=== PATIENT | male | born 1970 | race Caucasian/White ===

== ENCOUNTER → 2017-09-09 | Outpatient (CLI) | payer BC ==
[~2017-09-09] MED LIST: LEVO100T7 PO
--- NOTE | 2017-09-09 08:38 | DIAGNOSTIC IMAGING REPORT ---
TESTICULAR ULTRASOUND CLINICAL HISTORY: N50.9 epididymal mass COMPARISON STUDY: No previous studies for comparison. FINDINGS: The right testis measures 46 x 28 x 20 mm. The left testis measures 45 x 30 x 20 mm. No intratesticular masses are visualized. There is no evidence of testicular torsion. There are 2 small right-sided epididymal cysts the largest of which measures 5 mm. There is a 2 mm left-sided epididymal cyst. IMPRESSION: 1. No evidence of testicular torsion 2. No evidence of intratesticular mass 3. Small epididymal cysts Electronically signed by: Santi Nance M.D. 09/09/2017 8:37 AM Dictated Date/Time: 09/09/2017 8:25 AM
== END | disposition home or self-care (01) ==
LOC: C.ULTR 07:31
PROVIDERS: ATTEND Urology
DX: N50.3 Cyst of epididymis (principal); N50.9 Disorder of male genital organs, unspecified

== ENCOUNTER 2021-11-06 08:20 | Inpatient (IN) ==
[2021-11-06] MEDS ORDERED: SODIUM CHLORIDE 0.9% 1000ML 1,000 ML IV ONE (09:02)
[2021-11-06] MEDS ORDERED: ONDANSETRON INJ 2 MG/ML 2 ML VIAL IV PRN ×2 (09:03→18:47)
[2021-11-06] MEDS ORDERED: HYDROmorphone INJ 0.5 MG/0.5 ML SYR IV PRN (09:03)
--- NOTE | 2021-11-06 09:14 | Emergency Department Note ---
Impression & Plan Renal infarction, Renal artery occlusion, Abdominal pain, acute, right upper quadrant ED Provider Note CHIEF COMPLAINT: abdominal pain HISTORY OF PRESENT ILLNESS: This 51 yo male patient presents to the emergency department for evaluation of new onset right upper quadrant pain. It first start ed at 10am on 11/05/21 - it was located directly under the R rib cage. At times, it radiated through to the back. Prior to the onset of the pain he did eat "cream of wheat" for breakfast. Later in the afternoon he ate several hot dogs and cookies for lunch - subsequently he vomited (non-bloody, non-bilious). He also experienced chills but when he took his temperature he did not have a fever. He denies any changes to his bowel habits. He took 1 capsule of Aleve at 10pm last night, and then Tylenol 2 tabs 500mg at 1:30am this morning for the pain. The pain is currently a 2/10 in severity. He has never experienced a discomfort in this location before. He denies any preceding trauma to the abdomen/flank/back. He was outdoors setting traps one day prior to pain onset - which required him to bend forward many times, however he says the discomfort does not feel like a pulled muscle. He does have a personal history of kidney stones, although he denies any changes in his urination. No previous surgeries to the abdomen. Social Hx: No tobacco or alcohol use. Family Hx: father had gallbladder removed REVIEW OF SYSTEMS: A review of systems was performed with positives and pertinent negatives listed in the history of present illness. 10 systems were reviewed and are otherwise negative. ALLERGIES: see below MEDICATIONS: see below PHYSICAL EXAM: Vital signs reviewed. Noted to be mildly hypertensive at 144/99 General: Well-appearing adult male, in no significant distress. HEENT: No scleral icterus, PERRLA, neck supple. Normocephalic, atraumatic. Cardiovascular: Regular rate and rhythm, no extra sounds. Pulmonary: Clear to auscultation bilaterally, normal work of breathing. No crackles, wheezes, rhonchi. Abdomen: Soft, nondistended, positive bowel sounds. + mild tenderness reported upon palpation of RUQ. No rebound tenderness or guarding. No CVA tenderness. Gomez's sign negative. Musculoskeletal: no deformity appreciate Neurologic: Patient awake alert and oriented x 3, speech is clear Skin: Warm, dry, no rash. Otherwise noted as above. RADIOLOGY: see below EKG: Normal sinus rhythm with sinus arrhythmia at [address] segments. Normal QTC. No PVC, no PAC. Normal axis. MDM: This patient was evaluated and appeared to be in no significant distress. IV access was obtained and laboratory work was drawn. Patient was placed on a batch still operator and noted to be in a normal sinus rhythm with sinus arrhythmia. He was hydrated with normal saline solution, given IV Dilaudid and Zofran for his discomfort. Ultrasound right upper quadrant was performed and is negative for acute cholecystitis. Laboratory work is negative for obstructive biliary p athology. WBC is slightly elevated. Given that the patient's pain was sudden onset and unexplained, CT imaging of the abdomen pelvis was performed. There is concern for acute isolated pyelonephritis of the right kidney versus renal infarct. UA is negative. I did discuss the case with the radiologist who has recommended CT angiogram. Patient was given additional IV fluids. This was consistent with renal infarct. Hypercoagulable work-up was ordered. Patient's case was discussed with the hospitalist service who will evaluate patient for further management. Patient was made aware of the plan and agreed. DISPOSITION: Admission Past Med/Surg History Medical History Hypertension Surgical History H/O removal of cyst Family History Mother Diabetes Social History Smoking Status: Never smoker Hx Alcohol Use: No Hx Substance Use: No Preferred Language: Pashto Communication Ability: Effective Closer On Required: No Beliefs That Will Affect Care: None Current Living Situation: Spouse Other Information That Helps Us Care for You: No Feels Safe at Home: Yes Assistive Devices: None Allergies Allergies Allergy/AdvReac Type Severity Reaction Status Date / Time No Known Allergies Allergy Unverified 11/06/21 09:21 Home Meds Home Medications Medication Instructions Recorded Confirmed lisinopril 10 mg tablet 10 mg PO QAM 11/06/21 11/06/21 Results & Data (ED) Vital Signs Vital Signs - 24 hr 11/06/21 08:23 11/06/21 10:04 11/06/21 12:00 Temperature 36.5 C Temperature Source Temporal Artery Scan Pulse Rate 80 Pulse Rate [Finger] 73 78 Pulse Rate from SpO2 Sensor Pulse Rhythm [Finger] Regular Pulse Strength [Finger] Respiratory Rate 18 17 20 Respiratory Effort / Characteristics Non-Labored Spontaneous Non-Labored Respiratory Depth Normal Normal Blood Pressure 144/99 H Blood Pressure [Right Arm] 135/85 126/88 Blood Pressure Mean 114 Blood Pressure Mean [Right Arm] 101 100 Blood Pressure Position [Right Arm] Lying Pulse Oximetry 99 99 98 Oxygen Delivery Method Room Air Room Air Room Air Sepsis Recent Fever Within 48 Hours No Sepsis New/Unexplained Change in Mental Status No Sepsis Action Taken by Nursing No Action Required 11/06/21 14:00 11/06/21 15:00 11/06/21 15:10 Temperature Temperature Source Pulse Rate 72 Pulse Rate [Finger] 88 Pulse Rate from SpO2 Sensor 71 68 Pulse Rhythm [Finger] Regular Pulse Strength [Finger] Normal Respiratory Rate 20 Respiratory Effort / Characteristics Non-Labored Respiratory Depth Normal Blood Pressure Blood Pressure [Right Arm] 144/60 H Blood Pressure Mean Blood Pressure Mean [Right Arm] 88 Blood Pressure Position [Right Arm] Lying Pulse Oximetry 96 99 99 Oxygen Delivery Method Room Air Sepsis Recent Fever Within 48 Hours Sepsis New/Unexplained Change in Mental Status Sepsis Action Taken by Nursing 11/06/21 15:20 11/06/21 15:30 11/06/21 15:40 Temperature Temperature Source Pulse Rate 70 71 Pulse Rate [Finger] Pulse Rate from SpO2 Sensor 74 70 73 Pulse Rhythm [Finger] Pulse Strength [Finger] Respiratory Rate 19 21 Respiratory Effort / Characteristics Respiratory Depth Blood Pressure 127/76 127/87 Blood Pressure [Right Arm] Blood Pressure Mean 93 100 Blood Pressure Mean [Right Arm] Blood Pressure Position [Right Arm] Pulse Oximetry 97 99 98 Oxygen Delivery Method Sepsis Recent Fever Within 48 Hours Sepsis New/Unexplained Change in Mental Status Sepsis Action Taken by [facility] Medications Current Medication List: was personally reviewed by me Laboratory Data Attestation: I reviewed the patient's lab results. Result diagrams: 11/07/21 05:11 11/07/21 05:11 Lab Results 11/06/21 11/06/21 11/06/21 Range/Units 09:20 09:20 13:52 WBC 12.12 H (4.8-10.8) K/uL RBC 4.45 L (4.7-6.1) M/uL Hgb 13.6 L (14.0-18.0) g/dL Hct 40.0 L (42-52) % MCV 89.9 (80-100) fL MCH 30.6 (25-34) pg MCHC 34.0 (32-36) g/dL RDW Std Deviation 41.4 (36.4-46.3) fL RDW Coeff of Tyler 12.6 (11.5-14.5) % Plt Count 314 (130-400) K/uL MPV 9.1 (7.4-10.4) fL Immature Gran % (Auto) 0.1 % Neut % (Auto) 73.8 % Lymph % (Auto) 16.4 % Tyrrell % (Auto) 8.6 % Eos % (Auto) 0.7 % Baso % (Auto) 0.4 % Neut # (Auto) 8.95 H (1.4-6.5) K/uL Lymph # (Auto) 1.99 (1.2-3.4) K/uL Tyrrell # (Auto) 1.04 H (0.11-0.59) K/uL Eos # (Auto) 0.08 (0-0.5) K/uL Baso # (Auto) 0.05 (0-0.2) K/uL Immature Gran # (Auto) 0.01 (0.00-0.02) K/uL PT 10.4 (9.0-12.0) Seconds INR 1.0 (0.9-1.1) APTT 27.6 (21.0-31.0) Seconds PTT Ratio 1.0 Sodium 139 (136-145) mmol/L Potassium 3.8 (3.5-5.1) mmol/L Chloride 109 H (98-107) mmol/L Carbon Dioxide 25 (21-32) mmol/L Anion Gap 5.0 (3-11) BUN 18 (7-18) mg/dl Creatinine 1.09 (0.6-1.4) mg/dl Est Cr Clr Drug Dosing 85.4 ml/min Est GFR ( Amer) 90.6 ml/min Est GFR (Non-Af Amer) 78.2 ml/min BUN/Creatinine Ratio 16.5 (10-20) Glucose 103 H (70-99) mg/dl Calcium 9.6 (8.5-10.1) mg/dl Total Bilirubin 0.6 (0.2-1) mg/dl AST 18 (15-37) U/L ALT 30 (12-78) Alkaline Phosphatase 44 L (45-117) U/L Troponin I < 0.015 (0-0.045) ng/ml Total Protein 7.2 (6.4-8.2) gm/dl Albumin 3.8 (3.4-5.0) gm/dl Globulin 3.4 (2.5-4.0) gm/dl Albumin/Globulin Ratio 1.1 (0.9-2) Lipase 115 (73-393) U/L Administered Medications Acetaminophen (Acetaminophen 325 Mg Tab) 650 mg PO Q4H PRN PRN Reason: Pain or Fever Stop: 12/06/21 18:46 Last Admin: 11/07/21 20:08 Dose: 650 mg Documented by: [id number] Admin: 11/07/21 11:39 Dose: 650 mg Documented by: [id number] Heparin Sodium/Dextrose (Heparin Sodium/Dextrose) 25,000 units in 500 mls @ 29 mls/hr IV .[id number] [facility]; Protocol Stop: 12/06/21 17:29 Last Admin: 11/07/21 10:23 Dose: 1,450 units/hr, 29 mls/hr Documented by: [id number] Cosigned by: [id number] Titration: 11/07/21 10:23 Dose: 1,450 units/hr, 29 mls/hr Documented by: [id number] Cosigned by: [id number] Titration: 11/07/21 06:19 Dose: 1,450 units/hr, 29 mls/hr Documented by: [id number] Cosigned by: [id number] Titration: 11/07/21 01:31 Dose: 1,450 units/hr, 29 mls/hr Documented by: [id number] Cosigned by: [id number] Admin: 11/06/21 18:13 Dose: 1,450 units/hr, 29 mls/hr Documented by: [id number] Cosigned by: [id number] Lisinopril (Lisinopril 10 Mg Tab) [facility] [place] Stop: 12/07/21 08:59 Last Admin: 11/07/21 08:41 Dose: 10 mg Documented by: [id number] Discontinued Medications Heparin Sodium/Dextrose (Heparin Iv Adult Wt-Based Standard *No* Bolus Protocol) 1 ea IV NOW STA; Protocol Stop: 11/06/21 17:33 Last Admin: 11/06/21 18:13 Dose: 1 ea Documented by: [id number] Heparin Sodium/Dextrose (Heparin 87666 Unit/500 Ml D5w) Confirm Administered Dose 25,000 units IV .STK-MED ONE Stop: 11/06/21 18:01 Last Admin: 11/06/21 18:13 Dose: Not Given Documented by: [id number] Sodium Chloride (Nss 1000ml) 1,000 mls @ 999 mls/hr IV .Q1H1M ONE Stop: 11/06/21 10:02 Last Infusion: 11/06/21 10:04 Dose: 0 mls/hr Documented by: [id number] Admin: 11/06/21 09:21 Dose: 999 mls/hr Documented by: [id number] Sodium Chloride (Nss 1000ml) 1,000 mls @ 125 mls/hr IV .Q8H [place] Stop: 11/06/21 17:14 Last Infusion: 11/06/21 20:22 Dose: 0 mls/hr Documented by: [id number] Admin: 11/06/21 11:48 Dose: 125 mls/hr Documented by: [id number] Ioversol (Optiray 320 100ml) 95 ml IV ONCE ONE Stop: 11/06/21 11:32 Last Admin: 11/06/21 11:31 Dose: 95 ml Documented by: [id number] Ioversol (Optiray 320 125ml) 110 ml IV ONCE ONE Stop: 11/06/21 12:52 Last Admin: 11/06/21 12:51 Dose: 110 ml Documented by: [id number] Imaging Data Radiologist's Impression: Chest X-Ray 11/06/21 08:52 XR chest 1V portable CLINICAL HISTORY: RUQ pain. Evaluate the lung bases. COMPARISON STUDY: No previous studies for comparison. TECHNIQUE: 1 view of the chest FINDINGS: Single frontal view of the chest demonstrates the cardiomediastinal silhouette to be within normal limits. The lungs are clear of alveolar opacities. There is no evidence for pleural effusion. There is no evidence for vascular congestion. There is no acute osseous pathology. IMPRESSION: No acute cardiopulmonary disease. ACT 112: Negative or not required by law. Electronically signed by: Kayden Morales M.D. 11/06/2021 9:59 AM Gallbladder Ultrasound 11/06/21 08:52 US gallbladder CLINICAL HISTORY: RUQ pain TECHNIQUE: Multiple real-time sonographic images of the right upper quadrant were obtained. Comparison: None available at the time of this dictation. FINDINGS: The liver is diffusely echogenic in appearance with poor ultrasound penetration, with normal contour, which is consistent with fatty infiltration. No focal mass lesions are seen. No intrahepatic ductal dilatation is seen. No gallstones or sludge are identified within the gallbladder. The gallbladder wall is not thickened. There is no pericholecystic fluid present. A sonographic Gomez's sign was not elicited by the medicare sales representative. The common duct measures 0.5 cm in diameter at the level of the hepatic artery. The visualized portions of the pancreas appear normal. The right kidney shows normal echogenicity, cortical thickness and renal contour. The right kidney shows no evidence of hydronephrosis or mass. Parapelvic cysts are noted in the kidney. No ascites or free fluid is seen in Choi's pouch. IMPRESSION: No acute abnormalities and in particular no evidence of acute cholecystitis. ACT 112: Negative or not required by law. Electronically signed by: Stephen Gilmore M.D. 11/06/2021 10:57 AM Abdomen/Pelvis CT 11/06/21 11:02 CT abd pelvis IV con only CLINICAL HISTORY: RUQ abd pain, nl US. COMPARISON STUDY: Limited abdominal ultrasound from 11/06/2021 CT DOSE: 379.73 mGy.cm TECHNIQUE: Standard CT of the Abdomen and Pelvis was performed with IV contrast. A dose lowering technique was utilized adhering to the principles of ALARA. Contrast Volume: Optiray 320, 95 ml. The patient did not receive oral contrast. FINDINGS: Lung base: The lung bases are clear. Abdominal cavity: There is no evidence for abdominal mass, adenopathy or ascites. Liver: There is homogeneous attenuation of the liver parenchyma. There is no evidence for enhancing mass lesion. Spleen: There is homogeneous attenuation of the splenic parenchyma. There is no enhancing mass lesion. Pancreas: There is homogeneous attenuation of the pancreatic parenchyma. There is no evidence for mass lesion or peripancreatic fluid collection. Gall Bladder: The gallbladder is well distended with no evidence for intraluminal calculi, wall thickening or pericholecystic edema. Adrenal glands: The adrenal glands are normal in size and attenuation. There is no evidence for enhancing mass lesion. Kidneys: There is homogeneous attenuation of the left kidney with normal nephrogram phase present. However, there is localized absent nephrogram of the upper pole of the right kidney. The remainder of the right kidney perfuses normally. Minimal infiltration of the perirenal fat at the upper pole is also seen. These findings are suspicious for localized pyelonephritis. There is no evidence for renal calculus or hydronephrosis. There is no evidence for enhancing mass. Bowel: The bowel loops are normally placed within the abdomen and pelvis without evidence for dilatation or obstruction. There is no evidence for mass lesion. There are no inflammatory changes present. There is no evidence for free air. The appendix is not visualized. Bladder: The bladder is within normal limits with no evidence for focal mass, calculus or diverticulum. : There is no evidence for pelvic mass or adenopathy. There is no evidence for pelvic ascites. Vasculature: There is no evidence for aneurysmal dilatation of the abdominal aorta. Osseous structures: There is no acute osseous pathology. IMPRESSION: 1. CT findings characteristic of localized pyelonephritis of the upper pole of the right kidney as described above. 2. No other evidence for acute intra-abdominal or pelvic abnormality. The emergency department was called with these results. ACT 112: Negative or not required by law. Electronically signed by: Kayden Morales M.D. 11/06/2021 11:46 AM Abdomen CTA 11/06/21 12:31 CT angio abdomen w con CLINICAL HISTORY: Right upper quadrant pain with absent nephrogram to the upper pole of the right kidney. Evaluate for renal infarct COMPARISON STUDY: CT of the abdomen and pelvis from 11/06/2021 CT DOSE: 636.01 mGycm TECHNIQUE: Standard CT Angiogram of the aorta was performed with IV contrast followed by image post processing with coronal, and sagittal MIP reformats... This CT exam was performed using one or more of the following dose reduction techniques: Automated exposure control, adjustment of the mA and/or kV according to patient size, or use of iterative reconstruction technique. CONTRAST: Optiray 320, 110 mL nonionic intravenous contrast. VASCULAR FINDINGS: Abdominal aorta: patent without aneurysm or stenosis. Celiac trunk: patent without stenosis. Superior mesenteric artery: patent without stenosis. Right renal artery: There is evidence for a focal cutoff of the branch of the renal artery to the upper pole of the right kidney corresponding to the absent nephrogram phase. Findings represent the presence of a renal infarct. This is seen on images 153 through 148 of 288. There is homogeneous perfusion to the remaining right kidney. Left renal artery: patent without stenosis. Inferior mesenteric artery: patent without stenosis. Right common iliac artery: patent without stenosis. Right internal iliac artery: patent without stenosis. Right external iliac artery: patent without stenosis. Left common iliac artery: patent without stenosis. Left internal iliac artery: patent without stenosis. Left external iliac artery: patent without stenosis NONVASCULAR FINDINGS: The nonvascular findings are unchanged from the earlier CT with absence of a nephrogram phase to the upper pole of the right kidney corresponding to the renal infarct identified above. IMPRESSION: CTA confirms the presence of a focal cut off of the branch of the right renal artery to the upper pole of the right kidney representing focal occlusion. This may be embolic or thrombotic. The presence of dissection cannot be excluded but cannot be identified due to the small caliber of the artery. There is associated renal infarct of the upper pole the right kidney. The emergency department was called with the results of this study. ACT 112: Negative or not required by law. Electronically signed by: Kayden Morales M.D. 11/06/2021 1:26 PM Blood Pressure Blood Pressure Findings: Normal blood pressure Blood Pressure Disposition: did not require urgent referral Discharge Plan Visit Data Chief Complaint: Abdominal Pain Stated Complaint: RIGHT SIDE ABD PAIN ED Provider: Kisha Perez ED Midlevel Provider: Jeanna Willis Discharge Problem: Renal infarction, Renal artery occlusion, Abdominal pain, acute, right upper quadrant Patient Disposition: Admitted As Inpatient Discharge Instructions Interventions: ED Discharge Assessment Last Done: 11/06/21 16:30
[2021-11-06] MEDS ORDERED: SODIUM CHLORIDE 0.9% 1000ML 1,000 ML IV SCH (09:15)
[2021-11-06 09:31] LABS: Basophils # (auto) 0.05 K/uL (0-0.2); Basophils % (auto) 0.4 %; Eosinophils # (auto) 0.08 K/uL (0-0.5); Eosinophils % (auto) 0.7 %; Hemoglobin 13.6 g/dL (14.0-18.0); Immature Granulocytes # (auto) 0.01 K/uL (0.00-0.02); Immature Granulocytes % (auto) 0.1 %; Lymphocytes # (auto) 1.99 K/uL (1.2-3.4); Lymphocytes % (auto) 16.4 %; Mean Corpuscular Hemoglobin 30.6 pg (25-34); Mean Corpuscular Volume 89.9 fL (80-100); Mean Platelet Volume 9.1 fL (7.4-10.4); Monocytes # (auto) 1.04 K/uL (0.11-0.59); Monocytes % (auto) 8.6 %; Neutrophils # (auto) 8.95 K/uL (1.4-6.5); Neutrophils % (auto) 73.8 %; Platelet Count 314 K/uL (130-400); RDW Coefficient of Variation 12.6 % (11.5-14.5); RDW Standard Deviation 41.4 fL (36.4-46.3); Red Blood Count 4.45 M/uL (4.7-6.1); White Blood Count 12.12 K/uL (4.8-10.8)
[2021-11-06 09:53] LABS: Alanine Aminotransferase 30 (12-78); Albumin Level 3.8 gm/dl (3.4-5.0); Aspartate Aminotransferase 18 U/L (15-37); BUN Creatinine Ratio 16.5 (10-20); Blood Urea Nitrogen 18 mg/dl (7-18); Calcium 9.6 mg/dl (8.5-10.1); Carbon Dioxide 25 mmol/L (21-32); Chloride 109 mmol/L (98-107); Creatinine Clr Calc Pharmacy 85.4 ml/min; Est GFR (African American) 90.6 ml/min; Est GFR (Non-African American) 78.2 ml/min; Glucose 103 mg/dl (70-99); Lipase 115 U/L (73-393); Potassium 3.8 mmol/L (3.5-5.1); Sodium 139 mmol/L (136-145)
[2021-11-06 09:58] LABS: Albumin Globulin Ratio 1.1 (0.9-2); Alkaline Phosphatase 44 U/L (45-117); Bilirubin,Total 0.6 mg/dl (0.2-1); Globulin 3.4 gm/dl (2.5-4.0); Total Protein 7.2 gm/dl (6.4-8.2); Troponin I < 0.015 ng/ml (0-0.045)
--- NOTE | 2021-11-06 10:00 | XRay Report ---
XR chest 1V portable CLINICAL HISTORY: RUQ pain. Evaluate the lung bases. COMPARISON STUDY: No previous studies for comparison. TECHNIQUE: 1 view of the chest FINDINGS: Single frontal view of the chest demonstrates the cardiomediastinal silhouette to be within normal li mits. The lungs are clear of alveolar opacities. There is no evidence for pleural effusion. There is no evidence for vascular congestion. There is no acute osseous pathology. IMPRESSION: No acute cardiopulmonary disease. ACT 112: Negative or not required by law. Electronically signed by: Kayden Morales M.D. 11/06/2021 9:59 AM
--- NOTE | 2021-11-06 10:58 | Ultrasound Report ---
US gallbladder CLINICAL HISTORY: RUQ pain TECHNIQUE: Multiple real-time sonographic images of the right upper quadrant were obtained. Comparison: None available at the time of this dictation. FINDINGS: The liver is diffusely echogenic in appearance with poor ultrasound penetration, with normal contour, which is consistent with fatty infiltration. No focal mass lesions are seen. No intrahepatic lupe scott dilatation is seen. No gallstones or sludge are identified within the gallbladder. The gallbladd er wall is not thickened. There is no pericholecystic fluid present. A sonographic Gomez's sign was not elicited by the cashier clerk. The common duct measures 0.5 cm in diameter at the level of the h epatic artery. The visualized portions of the pancreas appear normal. The right kidney shows normal echogenicity, cortical thickness and renal contour. The right kidney sh ows no evidence of hydronephrosis or mass. Parapelvic cysts are noted in the kidney. No ascites or free fluid is seen in Choi's pouch. IMPRESSION: No acute abnormalities and in particular no evidence of acute cholecystitis. ACT 112: Negative or not required by law. Electronically signed by: Stephen Gilmore M.D. 11/06/2021 10:57 AM
[2021-11-06] MEDS ORDERED: OPTIRAY 320 100ml IV ONE (11:31)
--- NOTE | 2021-11-06 11:48 | CT Scan Report ---
CT abd pelvis IV con only CLINICAL HISTORY: RUQ abd pain, nl US. COMPARISON STUDY: Limited abdominal ultrasound from 11/06/2021 CT DOSE: 379.73 mGy.cm TECHNIQUE: Standard CT of the Abdomen and Pelvis was performed with IV contrast. A dose lowering tay hnique was utilized adhering to the principles of ALARA. Contrast Volume: Optiray 320, 95 ml. The patient did not receive oral contrast. FINDINGS: Lung base: The lung bases are clear. Abdominal cavity: There is no evidence for abdominal mass, adenopathy or ascites. Liver: There is homogeneous attenuation of the liver parenchyma. There is no evidence for enhancing m ass lesion. Spleen: There is homogeneous attenuation of the splenic parenchyma. There is no enhancing mass lesion . Pancreas: There is homogeneous attenuation of the pancreatic parenchyma. There is no evidence for mas s lesion or peripancreatic fluid collection. Gall Bladder: The gallbladder is well distended with no evidence for intraluminal calculi, wall thick ening or pericholecystic edema. Adrenal glands: The adrenal glands are normal in size and attenuation. There is no evidence for enhan cing mass lesion. Kidneys: There is homogeneous attenuation of the left kidney with normal nephrogram phase present. Ho wever, there is localized absent nephrogram of the upper pole of the right kidney. The remainder of t he right kidney perfuses normally. Minimal infiltration of the perirenal fat at the upper pole is als o seen. These findings are suspicious for localized pyelonephritis. There is no evidence for renal ca lculus or hydronephrosis. There is no evidence for enhancing mass. Bowel: The bowel loops are normally placed within the abdomen and pelvis without evidence for dilatat ion or obstruction. There is no evidence for mass lesion. There are no inflammatory changes present. There is no evidence for free air. The appendix is not visualized. Bladder: The bladder is within normal limits with no evidence for focal mass, calculus or diverticulu m. : There is no evidence for pelvic mass or adenopathy. There is no evidence for pelvic ascites. Vasculature: There is no evidence for aneurysmal dilatation of the abdominal aorta. Osseous structures: There is no acute osseous pathology. IMPRESSION: 1. CT findings characteristic of localized pyelonephritis of the upper pole of the right kidney as de scribed above. 2. No other evidence for acute intra-abdominal or pelvic abnormality. The emergency department was called with these results. ACT 112: Negative or not required by law. Electronically signed by: Kayden Morales M.D. 11/06/2021 11:46 AM
[2021-11-06 11:59] LABS: Appearance Urine Clear (Clear); Bilirubin Urine Negative (Negative); Blood Urine Negative (Negative); Color Urine Yellow; Glucose Urine UA Negative (Negative); Ketones Urine Negative (Negative); Leukocyte Esterase Urine Negative (Negative); Nitrite Urine Negative (Negative); Protein Urine Negative (Negative); Specific Gravity Urine 1.007 (1.000-1.030); Urobilinogen Urine Negative (Negative)
[2021-11-06] MEDS ORDERED: OPTIRAY 320 125ml IV ONE (12:51)
--- NOTE | 2021-11-06 13:27 | CT Scan Report ---
CT angio abdomen w con CLINICAL HISTORY: Right upper quadrant pain with absent nephrogram to the upper pole of the right kid aranza. Evaluate for renal infarct COMPARISON STUDY: CT of the abdomen and pelvis from 11/06/2021 CT DOSE: 636.01 mGycm TECHNIQUE: Standard CT Angiogram of the aorta was performed with IV contrast followed by image post processing with coronal, and sagittal MIP reformats... This CT exam was performed using one or more of the following dose reduction techniques: Automated ex posure control, adjustment of the mA and/or kV according to patient size, or use of iterative reconst ruction technique. CONTRAST: Optiray 320, 110 mL nonionic intravenous contrast. VASCULAR FINDINGS: Abdominal aorta: patent without aneurysm or stenosis. Celiac trunk: patent without stenosis. Superior mesenteric artery: patent without stenosis. Right renal artery: There is evidence for a focal cutoff of the branch of the renal artery to the upp er pole of the right kidney corresponding to the absent nephrogram phase. Findings represent the pres ence of a renal infarct. This is seen on images 153 through 148 of 288. There is homogeneous perfusio n to the remaining right kidney. Left renal artery: patent without stenosis. Inferior mesenteric artery: patent without stenosis. Right common iliac artery: patent without stenosis. Right internal iliac artery: patent without stenosis. Right external iliac artery: patent without stenosis. Left common iliac artery: patent without stenosis. Left internal iliac artery: patent without stenosis. Left external iliac artery: patent without stenosis NONVASCULAR FINDINGS: The nonvascular findings are unchanged from the earlier CT with absence of a ne phrogram phase to the upper pole of the right kidney corresponding to the renal infarct identified ab ove. IMPRESSION: CTA confirms the presence of a focal cut off of the branch of the right renal artery to t he upper pole of the right kidney representing focal occlusion. This may be embolic or thrombotic. Th e presence of dissection cannot be excluded but cannot be identified due to the small caliber of the artery. There is associated renal infarct of the upper pole the right kidney. The emergency department was called with the results of this study. ACT 112: Negative or not required by law. Electronically signed by: Kayden Morales M.D. 11/06/2021 1:26 PM
[2021-11-06 14:22] LABS: Partial Thromboplastin Time 27.6 Seconds (21.0-31.0); Prothrombin Time 10.4 Seconds (9.0-12.0)
--- NOTE | 2021-11-06 15:48 | History & Physical Report ---
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 R sided abdominal pain since yesterday Abdominal CTA shows * Presence of a focal cut off of the branch of the right renal artery to the upper pole of the right kidney representing focal occlusion. This may be embo lic or thrombotic * The presence of dissection cannot be excluded but cannot be identified due to the small caliber of the artery. 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 [place] [facility] [place] surgical intervention possible due to occlusion in branch vessel of renal artery. Recommends hypercoagulability work-up, anticoagulation, echo Likely to need lifelong aspirin and statin. Continue anticoagulation based on work-up (if presence of underlying arrhythmia, embolic etiology, etc) Fasting lipid panel in AM Started on IV heparin (2) Hypertension: Plan: Continue lisinopril DVT Ppx: IV heparin Code status: FULL PCP: Sonal ([place]) Dispo: Admitted to PCU Patient seen in collaboration with Dr. Espinosa. Please see addendum. History of Present Illness Chief Complaint: Right sided abdominal pain Primary Care Provider: Marcello Pruitt This is a 51-year-old male with PMH of hypertension who presents with right- sided abdominal pain since yesterday. First noticed when he was hunting. Describes pain as aching discomfort that is intermittent but it has persisted into today, prompting evaluation in the ED. Also endorses nausea and 2 episodes of vomiting last evening. The symptoms is since resolved. Currently pain-free. Denies any fever, chills, lightheadedness, headache, chest pain, shortness of breath, hematemesis, dysuria, hematuria, diarrhea or constipation. Denies any known history of arrhythmias or her clots in the past. No family history of DVT/PE. Only home medication is lisinopril. Receives primary care in [place]. Allergies Allergy/AdvReac Type Severity Reaction Status Date / Time No Known Allergies Allergy Unverified 11/06/21 09:21 Home Medications Medication Instructions Recorded Confirmed Type lisinopril 10 mg tablet 10 mg PO QAM 11/06/21 11/06/21 History Past Med/Surg History Medical History Hypertension Surgical History H/O removal of cyst Family History Mother Diabetes Social History Smoking Status: Never smoker Hx Alcohol Use: No Hx Substance Use: No Feels Safe at Home: Yes Review of Systems Review of Systems: At least ten systems reviewed and negative except as noted in the HPI. Physical Exam Physical Exam: General Appearance: WD/WN, vitals as above, NAD, sitting up in bed, pleasant, conversing easily Head: normocephalic, atraumatic Eyes: normal inspection, PERRL, conjunctivae normal, anicteric sclerae ENT: external ear and nose normal, oropharynx normal Neck: normal visual inspection, trachea midline, no thyromegaly Respiratory: normal respiratory effort, lungs clear to auscultation, no wheeze, rales, rhonchi. No accessory muscle use Cardiovascular: regular rate, rhythm, no murmur, normal peripheral pulses, no BLE edema. Vessels: no JVD Chest: normal inspection of chest Abdomen/GI: normal bowel sounds, soft, nontender, no hepatosplenomegaly Extremities/Musculoskeletal: no cyanosis or clubbing, extremities motor strength 5/5 Neurologic: PERRL, EOMI, accommodation nl, no face palsy, no dysarthria, CN's II-XI intact bilaterally and moves all extremities Psychiatric: A+Ox3, euthymic affect Skin: no rashes, normal color, warm/dry Results & Data Results & Data ([facility]) Vital Signs (Past 12 Hours) Vital Signs Temp Pulse Pulse Resp BP BP Pulse Ox 11/06/21 15:20 127/76 97 11/06/21 15:10 99 11/06/21 15:00 72 99 11/06/21 14:00 88 20 144/60 H 96 11/06/21 12:00 78 20 126/88 98 11/06/21 10:04 73 17 135/85 99 11/06/21 08:23 36.5 C 80 18 144/99 H 99 Laboratory Results Short CBC 11/06/21 Range/Units 09:20 WBC 12.12 H (4.8-10.8) K/uL Hgb 13.6 L (14.0-18.0) g/dL Hct 40.0 L (42-52) % Plt Count 314 (130-400) K/uL BMP 11/06/21 09:20 Sodium 139 Potassium 3.8 Chloride 109 H Carbon Dioxide 25 BUN 18 Creatinine 1.09 Glucose 103 H Calcium 9.6 Cardiac Enzymes 11/06/21 Range/Units 09:20 Troponin I < 0.015 (0-0.045) ng/ml Liver Function 11/06/21 Range/Units 09:20 Total Bilirubin 0.6 (0.2-1) mg/dl AST 18 (15-37) U/L ALT 30 (12-78) Alkaline Phosphatase 44 L (45-117) U/L Albumin 3.8 (3.4-5.0) gm/dl Urine 11/06/21 Range/Units Unknown Urine Color Yellow Urine Appearance Clear (Clear) Urine pH 6.0 (4.5-7.5) Ur Specific [place] 1.007 (1.000-1.030) Urine Protein Negative (Negative) Urine Glucose (UA) Negative (Negative) Diagnostic Findings Chest X-Ray 11/06/21 08:52 XR chest 1V portable CLINICAL HISTORY: RUQ pain. Evaluate the lung bases. COMPARISON STUDY: No previous studies for comparison. TECHNIQUE: 1 view of the chest FINDINGS: Single frontal view of the chest demonstrates the cardiomediastinal silhouette to be within normal limits. The lungs are clear of alveolar opacities. There is no evidence for pleural effusion. There is no evidence for vascular congestion. There is no acute osseous pathology. IMPRESSION: No acute cardiopulmonary disease. ACT 112: Negative or not required by law. Electronically signed by: Kayden Morales M.D. 11/06/2021 9:59 AM Gallbladder Ultrasound 11/06/21 08:52 US gallbladder CLINICAL HISTORY: RUQ pain TECHNIQUE: Multiple real-time sonographic images of the right upper quadrant were obtained. Comparison: None available at the time of this dictation. FINDINGS: The liver is diffusely echogenic in appearance with poor ultrasound penetration, with normal contour, which is consistent with fatty infiltration. No focal mass lesions are seen. No intrahepatic ductal dilatation is seen. No gallstones or sludge are identified within the gallbladder. The gallbladder wall is not thickened. There is no pericholecystic fluid present. A sonographic Gomez's sign was not elicited by the repairer maintenance building. The common duct measures 0.5 cm in diameter at the level of the hepatic artery. The visualized portions of the pancreas appear normal. The right kidney shows normal echogenicity, cortical thickness and renal contour. The right kidney shows no evidence of hydronephrosis or mass. Parapelvic cysts are noted in the kidney. No ascites or free fluid is seen in Choi's pouch. IMPRESSION: No acute abnormalities and in particular no evidence of acute cholecystitis. ACT 112: Negative or not required by law. Electronically signed by: Stephen Gilmore M.D. 11/06/2021 10:57 AM Abdomen/Pelvis CT 11/06/21 11:02 CT abd pelvis IV con only CLINICAL HISTORY: RUQ abd pain, nl US. COMPARISON STUDY: Limited abdominal ultrasound from 11/06/2021 CT DOSE: 379.73 mGy.cm TECHNIQUE: Standard CT of the Abdomen and Pelvis was performed with IV contrast. A dose lowering technique was utilized adhering to the principles of ALARA. Contrast Volume: Optiray 320, 95 ml. The patient did not receive oral contrast. FINDINGS: Lung base: The lung bases are clear. Abdominal cavity: There is no evidence for abdominal mass, adenopathy or ascites. Liver: There is homogeneous attenuation of the liver parenchyma. There is no evidence for enhancing mass lesion. Spleen: There is homogeneous attenuation of the splenic parenchyma. There is no enhancing mass lesion. Pancreas: There is homogeneous attenuation of the pancreatic parenchyma. There is no evidence for mass lesion or peripancreatic fluid collection. Gall Bladder: The gallbladder is well distended with no evidence for intraluminal calculi, wall thickening or pericholecystic edema. Adrenal glands: The adrenal glands are normal in size and attenuation. There is no evidence for enhancing mass lesion. Kidneys: There is homogeneous attenuation of the left kidney with normal nephrogram phase present. However, there is localized absent nephrogram of the upper pole of the right kidney. The remainder of the right kidney perfuses normally. Minimal infiltration of the perirenal fat at the upper pole is also seen. These findings are suspicious for localized pyelonephritis. There is no evidence for renal calculus or hydronephrosis. There is no evidence for enhancing mass. Bowel: The bowel loops are normally placed within the abdomen and pelvis without evidence for dilatation or obstruction. There is no evidence for mass lesion. There are no inflammatory changes present. There is no evidence for free air. The appendix is not visualized. Bladder: The bladder is within normal limits with no evidence for focal mass, ca lculus or diverticulum. : There is no evidence for pelvic mass or adenopathy. There is no evidence for pelvic ascites. Vasculature: There is no evidence for aneurysmal dilatation of the abdominal aorta. Osseous structures: There is no acute osseous pathology. IMPRESSION: 1. CT findings characteristic of localized pyelonephritis of the upper pole of the right kidney as described above. 2. No other evidence for acute intra-abdominal or pelvic abnormality. The emergency department was called with these results. ACT 112: Negative or not required by law. Electronically signed by: Kayden Moralse M.D. 11/06/2021 11:46 AM Abdomen CTA 11/06/21 12:31 CT angio abdomen w con CLINICAL HISTORY: Right upper quadrant pain with absent nephrogram to the upper pole of the right kidney. Evaluate for renal infarct COMPARISON STUDY: CT of the abdomen and pelvis from 11/06/2021 CT DOSE: 636.01 mGycm TECHNIQUE: Standard CT Angiogram of the aorta was performed with IV contrast followed by image post processing with coronal, and sagittal MIP reformats... This CT exam was performed using one or more of the following dose reduction techniques: Automated exposure control, adjustment of the mA and/or kV according to patient size, or use of iterative reconstruction technique. CONTRAST: Optiray 320, 110 mL nonionic intravenous contrast. VASCULAR FINDINGS: Abdominal aorta: patent without aneurysm or stenosis. Celiac trunk: patent without stenosis. Superior mesenteric artery: patent without stenosis. Right renal artery: There is evidence for a focal cutoff of the branch of the renal artery to the upper pole of the right kidney corresponding to the absent nephrogram phase. Findings represent the presence of a renal infarct. This is seen on images 153 through 148 of 288. There is homogeneous perfusion to the remaining right kidney. Left renal artery: patent without stenosis. Inferior mesenteric artery: patent without stenosis. Right common iliac artery: patent without stenosis. Right internal iliac artery: patent without stenosis. Right external iliac artery: patent without stenosis. Left common iliac artery: patent without stenosis. Left internal iliac artery: patent without stenosis. Left external iliac artery: patent without stenosis NONVASCULAR FINDINGS: The nonvascular findings are unchanged from the earlier CT with absence of a nephrogram phase to the upper pole of the right kidney corresponding to the renal infarct identified above. IMPRESSION: CTA confirms the presence of a focal cut off of the branch of the right renal artery to the upper pole of the right kidney representing focal occlusion. This may be embolic or thrombotic. The presence of dissection cannot be excluded but cannot be identified due to the small caliber of the artery. There is associated renal infarct of the upper pole the right kidney. The emergency department was called with the results of this study. ACT 112: Negative or not required by law. Electronically signed by: Kayden Morales M.D. 11/06/2021 1:26 PM Code Status & VTE Plan VTE Prophylaxis Plan VTE Prophylaxis will be ordered: Yes Supervising Physician Co-Signing Physician Notes Eating for Patient is a 51-year-old male with history of hypertension presents with history of right-sided abdominal pain, sudden onset, icterus as per patient, radiates to back, intermittent. Also reports associated nausea, vomiting yesterday. Please review HPI for complete details of presentation. Blood work suggestive of leukocytosis 12 K. Imaging studies suggestive of right renal artery occlusion. Discussed with vascular surgery. Started on IV heparin. Agree with echo, monitoring on telemetry for arrhythmias. Consider carotid ultrasound and arterial Doppler study to rule out peripheral artery disease. Hypercoagulable work-up ordered. Check lipid panel. Consider aspirin, statin if needed. No intervention currently suggested by vascular surgery. Duration of anticoagulat ion to be determined based on further work-up. On exam patient is well-built and nourished, no apparent distress, normocephalic atraumatic, EOMI, normal breath sounds, clear to auscultation, S1-S2, no murmur, no pedal edema, abdomen soft, nontender, normal bowel sounds, alert, awake, oriented, grossly no focal deficits. I personally reviewed the record. Patient is interviewed and examined at bedside. Patient's care is coordinated with Joan Downs PA-C. Please refer to the documentation above for details of patient's presentation and for discussion of other issues.
[2021-11-06] MEDS ORDERED: Heparin IV Adult Wt-Based Standard *NO* Bolus Protocol IV STA (17:32)
[2021-11-06] MEDS ORDERED: HEPARIN 25000 UNIT/500 ML D5W IV ONE (18:00)
[2021-11-06] MEDS: HEPARIN SODIUM/DEXTROSE 25,000 UNITS/500 ML BAG IV SCH (18:13)
[2021-11-06] MEDS ORDERED: POLYETHYLENE (MIRALAX) 17 GM PACK PO PRN (18:47)
[2021-11-07 01:23] LABS: Partial Thromboplastin Ratio 1.8
[2021-11-07 01:27] LABS: Partial Thromboplastin Time 48.4 Seconds (21.0-31.0)
[2021-11-07 05:47] LABS: Hematocrit (blood only) 39.5 % (42-52); Hemoglobin 13.3 g/dL (14.0-18.0); Mean Corpuscular Hemoglobin 30.1 pg (25-34); Mean Corpuscular Hgb Conc 33.7 g/dL (32-36); Mean Corpuscular Volume 89.4 fL (80-100); Mean Platelet Volume 9.3 fL (7.4-10.4); Partial Thromboplastin Ratio 2.3; Platelet Count 267 K/uL (130-400); RDW Coefficient of Variation 12.4 % (11.5-14.5); RDW Standard Deviation 40.1 fL (36.4-46.3); Red Blood Count 4.42 M/uL (4.7-6.1); White Blood Count 11.79 K/uL (4.8-10.8)
[2021-11-07 06:04] LABS: BUN Creatinine Ratio 13.2 (10-20); Est GFR (African American) 108.4 ml/min; Est GFR (Non-African American) 93.5 ml/min; Potassium 3.7 mmol/L (3.5-5.1)
[2021-11-07 06:12] LABS: Partial Thromboplastin Time 59.2 Seconds (21.0-31.0)
--- NOTE | 2021-11-07 07:20 | Emergency Department Note ---
ED Visit Note This patient was seen in concert with Dr. Perez and we discussed and agreed upon the history, physical, assessment and plan. See attending's note for details. . Resident Activity Tracking Resident Involvement: Resident Care Provided Care Provided: Adult ED
[2021-11-07] MEDS: lisinopril 10 MG TAB PO SCH (08:41)
[2021-11-07] MEDS: HEPARIN SODIUM/DEXTROSE 25,000 UNITS/500 ML BAG IV SCH (10:23)
[2021-11-07] MEDS: ACETAMINOPHEN 325 MG TAB PO PRN ×2 (11:39→20:08)
--- NOTE | 2021-11-07 17:24 | Hospitalist Progress Note ---
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 R sided abdominal pain since yesterday 11/05/2021 Abdominal CTA shows * Presence of a focal cut off of the branch of the right renal artery to the upper pole of the right kidney representing focal occlusion. This may be embolic or thrombotic * The presence of dissection cannot be excluded but cannot be identified due to the small caliber of the artery. 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 Garcia at [facility] [place] - no surgical intervention possible due to occlusion in branch vessel of renal artery. Recommends hypercoagulability work-up, anticoagulation, echo Likely to need lifelong aspirin and statin. Continue anticoagulation based on work-up (if presence of underlying arrhythmia, embolic etiology, etc) Echo of the heart showed normal LV chamber size with mild concentric LVH, normal LV systolic function, EF 60 to 65%, no segmental ligament low wall motion abnormalities, normal diastolic function, no significant valvular pathology, highly mobile lesion present in the right atrium differential diagnosis of prominent GRE malformation versus thrombus Fasting lipid panel in AM -unremarkable Started on IV heparin Hypercoagulable work-up is pending Discussed about oral anticoagulation (2) Hypertension: Plan: Continue lisinopril Blood pressure remains stable DVT Ppx: IV heparin Code status: FULL PCP: Sonal Parra) Dispo: Admitted to PCU Patient seen in collaboration with Dr. Espinosa. Please see addendum. Admission and Anticipated Discharge Date Admission Date: November 06, 2021 Subjective 11/07/2021 The patient was seen and examined in the emergency room The patient was seen and examined in emergency room in the holding area His abdominal pain has been disappeared He did not have any problem with urine and bowel habit before coming to the hospital He denies any shortness of breath and/or palpitation as well Remains stable in the emergency room Review of Systems Review of Systems: All systems reviewed and are unremarkable except as noted below Gastrointestinal: No abdominal pain Physical Exam Physical Exam: Lying in bed comfortably Constitutional: well developed, well nourished and + obese; not ill appearing Eyes: PERRL, conjunctivae normal, anicteric sclerae ENMT: external ear and nose normal, oropharynx normal Neck: trachea midline, no thyromegaly Respiratory: no respiratory distress Auscultation: lungs clear to auscultation bilaterally Cardiovascular: Rate/Rhythm: regular rate and regular rhythm; not tachycardic Heart Sounds: normal S1 and normal S2; no murmur Extremities: no edema Gastrointestinal (Abdomen): Inspection/Auscultation: normal bowel sounds; abdomen not distended Percussion/Palpation: abdomen soft; abdomen nontender Musculoskeletal: No acute arthritis in any joint Neurologic: Alert, awake and oriented x3. No focal sensory no motor deficit appreciated Psychiatric: A+Ox3, euthymic affect Lymphatic: no cervical or axillary lymphadenopathy Results & Data Results & Data ([facility]) Vital Signs (Past 12 Hours) Vital Signs Temp Pulse Resp BP Pulse Ox 11/07/21 16:29 77 17 122/82 97 11/07/21 11:43 80 18 115/80 97 11/07/21 07:04 37.2 C 73 18 116/78 97 Laboratory Results Short CBC 11/07/21 Range/Units 05:11 WBC 11.79 H (4.8-10.8) K/uL Hgb 13.3 L (14.0-18.0) g/dL Hct 39.5 L (42-52) % Plt Count 267 (130-400) K/uL BMP 11/07/21 05:11 Sodium 137 Potassium 3.7 Chloride 107 Carbon Dioxide 25 BUN 12 Creatinine 0.94 Glucose 106 H Calcium 9.0 Medications Administered Current Inpatient Medications Acetaminophen (Acetaminophen 325 Mg Tab) 650 mg PO Q4H PRN PRN Reason: Pain or Fever Stop: 12/06/21 18:46 Last Admin: 11/07/21 11:39 Dose: 650 mg Documented by: Hydromorphone HCl (Hydromorphone Inj 0.5 Mg/0.5 Ml Syr) 0.5 mg IV Q6H PRN PRN Reason: Pain Stop: 11/20/21 09:02 Heparin Sodium/Dextrose (Heparin Sodium/Dextrose) 25,000 units in 500 mls @ 29 mls/hr IV .[id number] [facility] [place]; Protocol Stop: 12/06/21 17:29 Last Admin: 11/07/21 10:23 Dose: 1,450 units/hr, 29 mls/hr Documented by: Lisinopril (Lisinopril 10 Mg Tab) 10 mg PO QAM [facility] [place] Stop: 12/07/21 08:59 Last Admin: 11/07/21 08:41 Dose: 10 mg Documented by: Ondansetron HCl (Ondansetron Inj 2 Mg/Ml 2 Ml Vial) 4 mg IV Q4H PRN PRN Reason: Nausea Stop: 12/06/21 09:02 Ondansetron HCl (Ondansetron Inj 2 Mg/Ml 2 Ml Vial) 4 mg IV Q6H PRN PRN Reason: Nausea Stop: 12/06/21 18:46 Polyethylene Glycol (Polyethylene (Miralax) 17 Gm Pack) 17 gm PO DAILY PRN PRN Reason: Constipation Stop: 12/06/21 18:46
[2021-11-08] MEDS: HEPARIN SODIUM/DEXTROSE 25,000 UNITS/500 ML BAG IV SCH (01:53)
--- NOTE | 2021-11-08 06:20 | Electrocardiogram Report ---
Test Reason : Blood Pressure : / mmHG Vent. Rate : 070 BPM Atrial Rate : 070 BPM P-R Int : 180 ms QRS Dur : 096 ms QT Int : 392 ms P-R-T Axes : 058 -23 035 degrees QTc Int : 423 ms Normal sinus rhythm with sinus arrhythmia Poor R wave progression, consider anterior NC vs. lead placement vs. LVH Abnormal ECG When compared with ECG of 03-JUN-2014 12:28, No significant change was found Confirmed by Farhat Barrios ([id number]) on 11/08/2021 6:20:26 AM Referred By: REFERRED SELF Confirmed By:Farhat Barrios
[2021-11-08 07:43] LABS: Basophils # (auto) 0.03 K/uL (0-0.2); Basophils % (auto) 0.3 %; Eosinophils # (auto) 0.04 K/uL (0-0.5); Eosinophils % (auto) 0.4 %; Hematocrit (blood only) 39.1 % (42-52); Hemoglobin 13.3 g/dL (14.0-18.0); Immature Granulocytes # (auto) 0.01 K/uL (0.00-0.02); Immature Granulocytes % (auto) 0.1 %; Lymphocytes # (auto) 1.18 K/uL (1.2-3.4); Lymphocytes % (auto) 12.4 %; Mean Corpuscular Hemoglobin 30.4 pg (25-34); Mean Corpuscular Volume 89.5 fL (80-100); Monocytes # (auto) 0.91 K/uL (0.11-0.59); Monocytes % (auto) 9.6 %; Neutrophils # (auto) 7.33 K/uL (1.4-6.5); Neutrophils % (auto) 77.2 %; Platelet Count 242 K/uL (130-400); RDW Coefficient of Variation 12.4 % (11.5-14.5); RDW Standard Deviation 40.1 fL (36.4-46.3); Red Blood Count 4.37 M/uL (4.7-6.1)
[2021-11-08] MEDS: lisinopril 10 MG TAB PO SCH (07:55)
[2021-11-08 08:02] LABS: Partial Thromboplastin Ratio 2.1
[2021-11-08 08:11] LABS: Partial Thromboplastin Time 54.7 Seconds (21.0-31.0)
[2021-11-08 08:13] LABS: BUN Creatinine Ratio 15.4 (10-20); C Reactive Protein 8.57 mg/dl (0-0.29); Calcium 9.2 mg/dl (8.5-10.1); Creatinine Clr Calc Pharmacy 90.4 ml/min; Est GFR (Non-African American) 83.7 ml/min; Potassium 3.9 mmol/L (3.5-5.1)
[2021-11-08] MEDS ORDERED: ATORVASTATIN 40 MG TAB PO SCH (12:30)
[2021-11-08] MEDS ORDERED: ASPIRIN 81 MG ECTAB PO SCH (12:30)
--- NOTE | 2021-11-08 13:21 | Hospitalist Progress Note ---
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 R sided abdominal pain since yesterday 11/05/2021 Abdominal CTA shows * Presence of a focal cut off of the branch of the right renal artery to the upper pole of the right kidney representing focal occlusion. This may be embolic or thrombotic * The presence of dissection cannot be excluded but cannot be identified due to the small caliber of the artery. 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 [facility] [place] intervention possible due to occlusion in branch vessel of renal artery. Recommends hypercoagulability work-up, anticoagulation, echo Likely to need lifelong aspirin and statin. Continue anticoagulation based on work-up (if presence of underlying arrhythmia, embolic etiology, etc) Echo of the heart showed normal LV chamber size with mild concentric LVH, normal LV systolic function, EF 60 to 65%, no segmental ligament low wall motion abnormalities, normal diastolic function, no significant valvular pathology, highly mobile lesion present in the right atrium differential diagnosis of prominent GRE malformation versus thrombus Fasting lipid panel in AM -unremarkable Started on IV heparin and later on discontinued Hypercoagulable work-up is pending Discussed with the vascular surgery at [facility] in [place]: Since the obstructed vessel is very small and no other source of embolization has been found out, the patient will not need any anticoagulation but will need aggressive therapy with statin and aspirin to prevent vascular occlusion. He will not need to have any further follow-up studies until there is anyone going pain and or recurrence of symptoms. He will be given Lipitor 40 mg once a day and aspirin 81 or 81 mg and will be discharged home this afternoon (2) Hypertension: Plan: Continue lisinopril Blood pressure remains stable DVT Ppx: IV heparin Code status: FULL PCP: Sonal Parra) Dispo: Admitted to PCU Will be discharged home this afternoon Admission and Anticipated Discharge Date Admission Date: November 06, 2021 Subjective 11/07/2021 The patient was seen and examined in the emergency room The patient was seen and examined in emergency room in the [facility] area His abdominal pain has been disappeared He did not have any problem with urine and bowel habit before coming to the hospital He denies any shortness of breath and/or palpitation as well Remains stable in the emergency room 11/08/2021 The patient was seen and examined in emergency room in the [facility] area He has been feeling much better and denies any symptoms Denies any abdominal pain, nausea or vomiting and does not have any problem with urination Review of Systems Review of Systems: All systems reviewed and are unremarkable except as noted below Gastrointestinal: No abdominal pain Physical Exam Physical Exam: Lying in bed comfortably Constitutional: well developed, well nourished and + obese; not ill appearing Eyes: PERRL, conjunctivae normal, anicteric sclerae ENMT: external ear and nose normal, oropharynx normal Neck: trachea midline, no thyromegaly Respiratory: no respiratory distress Auscultation: lungs clear to auscultation bilaterally Cardiovascular: Rate/Rhythm: regular rate and regular rhythm; not tachycardic Heart Sounds: normal S1 and normal S2; no murmur Extremities: no edema Gastrointestinal (Abdomen): Inspection/Auscultation: normal bowel sounds; abdomen not distended Percussion/Palpation: abdomen soft; abdomen nontender Musculoskeletal: No acute arthritis in any joint Neurologic: Alert, awake and oriented x3. No focal sensory and motor deficit appreciated Psychiatric: A+Ox3, euthymic affect Lymphatic: no cervical or axillary lymphadenopathy Results & Data Results & Data ([facility]) Vital Signs (Past 12 Hours) Vital Signs Temp Pulse Resp BP Pulse Ox 11/08/21 07:12 36.8 C 61 18 122/78 98 11/08/21 04:00 37.5 C 77 20 122/77 100 Laboratory Results Short CBC 11/08/21 Range/Units 07:33 WBC 9.50 (4.8-10.8) K/uL Hgb 13.3 L (14.0-18.0) g/dL Hct 39.1 L (42-52) % Plt Count 242 (130-400) K/uL BMP 11/08/21 07:33 Sodium 139 Potassium 3.9 Chloride 107 Carbon Dioxide 27 BUN 16 Creatinine 1.03 Glucose 113 H Calcium 9.2 Medications Administered Current Inpatient Medications Acetaminophen (Acetaminophen 325 Mg Tab) 650 mg PO Q4H PRN PRN Reason: Pain or Fever Stop: 12/06/21 18:46 Last Admin: 12/22/21 20:08 Dose: 650 mg Documented by: Aspirin (Aspirin 81 Mg Ectab) 81 mg PO [facility] Stop: 12/08/21 12:29 Last Admin: 11/08/21 12:47 Dose: 81 mg Documented by: Atorvastatin Calcium (Atorvastatin 40 Mg Tab) 40 mg PO [facility] Stop: 12/08/21 12:29 Last Admin: 11/08/21 12:47 Dose: 40 mg Documented by: Hydromorphone HCl (Hydromorphone Inj 0.5 Mg/0.5 Ml Syr) 0.5 mg IV Q6H PRN PRN Reason: Pain Stop: 11/20/21 09:02 Lisinopril (Lisinopril 10 Mg Tab) 10 mg PO [facility] Stop: 12/07/21 08:59 Last Admin: 11/08/21 07:55 Dose: 10 mg Documented by: Ondansetron HCl (Ondansetron Inj 2 Mg/Ml 2 Ml Vial) 4 mg IV Q4H PRN PRN Reason: Nausea Stop: 12/06/21 09:02 Ondansetron HCl (Ondansetron Inj 2 Mg/Ml 2 Ml Vial) 4 mg IV Q6H PRN PRN Reason: Nausea Stop: 12/06/21 18:46 Polyethylene Glycol (Polyethylene (Miralax) 17 Gm Pack) 17 gm PO DAILY PRN PRN Reason: Constipation Stop: 12/06/21 18:46
--- NOTE | 2021-11-09 09:07 | Discharge Summary ---
Date of Service November 09, 2021 Admission HPI Per Admitting Provider This is a 51-year-old male with PMH of hypertension who presents with right- sided abdominal pain since yesterday. First noticed when he was hunting. Describes pain as aching discomfort that is intermittent but it has persisted into today, prompting evaluation in the ED. Also endorses nausea and 2 episodes of vomiting last evening. The symptoms is since resolved. Currently pain-free. Denies any fever, chills, lightheadedness, headache, chest pain, shortness of breath, hematemesis, dysuria, hematuria, diarrhea or constipation. Denies any known history of arrhythmias or her clots in the past. No family history of DVT/PE. Only home medication is lisinopril. Receives primary care in [place]. Admission Exam Per Admitting Provider Physical Exam: General Appearance:WD/WN, vitals as above, NAD, sitting up in bed, pleasant, conversing easily Head: normocephalic, atraumatic Eyes:normal inspection, PERRL, conjunctivae normal, anicteric sclerae ENT: external ear and nose normal, oropharynx normal Neck: normal visual inspection, trachea midline, no thyromegaly Respiratory:normal respiratory effort, lungs clear to auscultation, no wheeze, rales, rhonchi. No accessory muscle use Cardiovascular: regular rate, rhythm, no murmur, normal peripheral pulses, no BLE edema. 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, hypertension Discharge Exam Lying in bed comfortably Constitutional well developed, well nourished and + obese; not ill appearing Eyes PERRL, conjunctivae normal, anicteric sclerae ENMT external ear and nose normal, oropharynx normal Neck trachea midline, no thyromegaly Respiratory no respiratory distress Auscultation: lungs clear to auscultation bilaterally Cardiovascular Rate/Rhythm: regular rate and regular rhythm; not tachycardic Heart Sounds: normal S1 and normal S2; no murmur Extremities: no edema Gastrointestinal (Abdomen) Inspection/Auscultation: normal bowel sounds; abdomen not distended Percussion/Palpation: abdomen soft; abdomen nontender Psychiatric A+Ox3, euthymic affect Lymphatic no cervical or axillary lymphadenopathy Discharge Data Allergies Allergy/AdvReac Type Severity Reaction Status Date / Time No Known Allergies Allergy Unverified 11/06/21 09:21 Consultations 11/06/21 14:10 ED Decision to Admit Stat Ordered Studies 11/06/21 08:52 US gallbladder Stat 11/06/21 11:02 CT abd pelvis IV con only Stat 11/06/21 12:31 CT angio abdomen w con Stat Hospital Course (1) Renal artery occlusion: This is a 51-year-old male with PMH of hypertension who presents with right- sided abdominal pain since yesterday and 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 R sided abdominal pain since yesterday 11/05/2021 Abdominal CTA shows * Presence of a focal cut off of the branch of the right renal artery to the upper pole of the right kidney representing focal occlusion. This may be embolic or thrombotic * The presence of dissection cannot be excluded but cannot be identified due to the small caliber of the artery. 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 [facility] [place] possible due to occlusion in branch vessel of renal artery. Recommends hypercoagulability work-up, anticoagulation, echo Likely to need lifelong aspirin and statin. Continue anticoagulation based on work-up (if presence of underlying arrhythmia, embolic etiology, etc) Echo of the heart showed normal LV chamber size with mild concentric LVH, normal LV systolic function, EF 60 to 65%, no segmental ligament low wall motion abnormalities, normal diastolic function, no significant valvular pathology, highly mobile lesion present in the right atrium differential diagnosis of prominent GRE malformation versus thrombus Fasting lipid panel in AM -unremarkable Started on IV heparin and later on discontinued Hypercoagulable work-up is pending Discussed with the vascular surgery at [facility] in [place]: Since the obstructed vessel is very small and no other source of embolization has been found out, the patient will not need any anticoagulation but will need aggressive therapy with statin and aspirin to prevent vascular occlusion. He will not need to have any further follow-up studies until there is anyone going pain and or recurrence of symptoms. He will be given Lipitor 40 mg once a day and aspirin 81 or 81 mg and will be discharged home this afternoon (2) Hypertension: Continue lisinopril Blood pressure remains stable DVT Ppx: IV heparin Code status: FULL PCP: Sonal Parra) Dispo: Admitted to PCU Will be discharged home this afternoon Total Time Total Time Spent Total Time Spent (In Minutes): 40 minutes Discharge Plan Discharge Items Patient Disposition: Home - Self-Care Reason For Visit: RIGHT SIDE ABD PAIN Discharge Diagnosis: Right branch retinal artery occlusion, no embolic source identified, hypertension Condition on Discharge: Good Activity: Resume your previous activity Non-emergency contact: Primary Care Provider Call non-emergency contact if: you have any medication questions and your symptoms worsen Follow-up/Referrals: Marcello Pruitt [Primary Care Provider] - (Dr Pruitt's office will call you with a follow up appointment.) Diet: Regular Addtl Attending Provider Instructions: Please take your medications as advised Have regular follow-up with your healthcare providers No need to have any follow-up test for the renal artery occlusion until there is ongoing symptoms as per the vascular surgeon We will notify the results of your other blood test Pending Studies at Discharge: Yes Studies:: Hypercoagulable work-up Stand-Alone Forms: My [facility] 1d4 Pty, Smoking Cessation Medications and DC Order Prescriptions: New atorvastatin 40 mg Tablet 40 mg PO QAM 30 Days Qty: 30 RF: 0 aspirin 81 mg Tablet,Delayed Release (Dr/Ec) 81 mg PO QAM 30 Days Qty: 30 RF: 0 Continued lisinopril 10 mg tablet 10 mg PO QAM RF: 0 Discharge Orders: Discharge Order (Routine); Ordered 11/08/21 Ordered By: Graciela Bui Admission Data Admit Date/Time: 11/06/21 15:46 Attending Provider: Graciela Bui Admit Provider: John Espinosa Primary Care Provider: Marcello Pruitt Other Providers: John Espinosa Other Interventions: Discharge Summary Assessment (RN) Last Done: 11/08/21 14:50
[2021-11-13 17:27] LABS: Factor 5 Mutation NEGATIVE
[2021-11-14 07:01] LABS: Anti Cardiolipin Ab IgG <2.0 GPL-U/mL; Anti Cardiolipin Ab IgM 3.5 MPL-U/mL; Anti-Thrombin III Activity 86 % normal (80-135); PTT LA Screen 37 sec (<=40)
[2021-11-20 16:41] LABS: B2 Glycoprotein IgG <2.0 U/mL (<20.0); B2 Glycoprotein IgM 5.8 U/mL (<20.0); Protein S Functional(Activity) 84 % (70-150)
== END 2021-11-08 15:02 | disposition home or self-care (01) | DRG 700 ==
LOC: ED 08:20 → SUATTDRO 15:46 → EDINP 15:46